=== PATIENT | female | born 1950 | race Caucasian/White ===

== ENCOUNTER → 2020-11-11 13:23 | Outpatient (BNVA) | payer MEDICARE, SELFPAY | PROVIDERS: Family Provider Internal Medicine; PCP Internal Medicine; Visit Provider Nurse Practitioner Family | DX: Z20.822 Contact with and (suspected) exposure to COVID-19 (principal) | CPT/HCPCS: 87635 ==

== ENCOUNTER 2021-04-27 06:00 | Outpatient (RCR) | payer MEDICARE, SELFPAY | END 2021-05-24 23:59 | disposition home or self-care (01) | LOC: GPT 06:00 | PROVIDERS: PCP Internal Medicine; Visit Provider Nurse Practitioner | DX: M25.851 Other specified joint disorders, right hip (principal) | CPT/HCPCS: 97110; 97140; 97162 ==

== ENCOUNTER 2021-05-25 06:00 | Outpatient (RCR) | payer MEDICARE, SELFPAY | END 2021-05-31 23:59 | disposition home or self-care (01) | LOC: GPT 06:00 | PROVIDERS: PCP Internal Medicine; Visit Provider Nurse Practitioner | DX: M25.851 Other specified joint disorders, right hip (principal) | CPT/HCPCS: 97110; 97530 ==

== ENCOUNTER → 2024-05-21 13:36 | Outpatient (BNVA) | payer OTHER, SELFPAY | PROVIDERS: PCP Internal Medicine; Visit Provider Podiatrist Foot & Ankle Surgery | DX: M79.671 Pain in right foot (principal); M79.89 Other specified soft tissue disorders; G57.81 Other specified mononeuropathies of right lower limb; E11.9 Type 2 diabetes mellitus without complications | CPT/HCPCS: 73630 ==

== ENCOUNTER 2024-05-27 08:28 | Outpatient (CLI) | payer OTHER, SELFPAY ==
--- NOTE | 2024-05-27 08:45 | MRR_ITS ---
PROCEDURE INFORMATION: Exam: MR Right Lower Extremity Joint Without and With Contrast; Ankle Exam date and time: 05/27/2024 8:50 AM Age: 73 years old Clinical indication: Pain; Right; PT states shes had a burning apinful sensation in her ankle and along the lateral side carmen her foot for 2 years no known injury; Additional info: Right ankle pain amd burning TECHNIQUE: Imaging protocol: Magnetic resonance imaging of the right lower extremity without and with contrast. Exam focused on the ankle. Contrast material: MULTIHANCE; Contrast volume: 19 ml; Contrast route: INTRAVENOUS (IV); COMPARISON: CR XR foot RT min 3V* [id number] 05/21/2024 1:44 PM FINDINGS: Bones/joints: No marrow edema fracture or bone destruction is appreciated. No focal full-thickness cartilage defects are appreciated. No subchondral cyst formation is noted. There is a physiologic amount of fluid within the joints. LIGAMENTS: Distal tibiofibular syndesmosis: Unremarkable. No tear. Anterior talofibular ligament: Unremarkable. No tear. Posterior talofibular ligament: Unremarkable. No tear. Calcaneofibular ligament: Unremarkable. No tear. Deltoid ligament complex: Unremarkable. No tear. TENDONS: Flexor tendons of foot: Unremarkable as visualized. Tibialis posterior tendon: Unremarkable as visualized. Peroneal tendons: Unremarkable as visualized. Extensor tendons of foot: Unremarkable as visualized. Tibialis anterior tendon: Unremarkable as visualized. Achilles tendon: There is an enthesophyte at the Achilles tendon insertion. There is mild tendinopathy involving the Achilles tendon. Tarsal canal (Sinus tarsi): Unremarkable. Normal signal of the fat. Tarsal tunnel: Unremarkable. Soft tissues: Unremarkable. Plantar fascia: Plantar fascia is unremarkable. MR/MR ankle RT wo/w con [id number] IMPRESSION: 1. Mild tendinopathy involving the Achilles tendon.
[2024-05-27] MEDS: gadobenate dimeglumine 20 mL vial 19 ML IV (09:17)
== END 2024-05-27 08:29 | disposition home or self-care (01) ==
LOC: RAD 08:29
PROVIDERS: PCP Nurse Practitioner; Visit Provider Podiatrist Foot & Ankle Surgery
DX: M79.89 Other specified soft tissue disorders (principal); M76.61 Achilles tendinitis, right leg
CPT/HCPCS: 73723

== ENCOUNTER → 2024-09-02 09:47 | Outpatient (BNVA) | payer OTHER, SELFPAY | PROVIDERS: PCP Nurse Practitioner; Visit Provider Physician Assistant | DX: M65.331 Trigger finger, right middle finger (principal) | CPT/HCPCS: 73130 ==

== ENCOUNTER 2024-10-21 11:26 | Day surgery (SDC) | payer OTHER, SELFPAY ==
[2024-10-21 11:41] VITALS: BP 152/92; PULSE 71; RESP 17; TEMP 36.6; O2SAT 98; BMI 29.6
--- NOTE | 2024-10-21 12:04 | ANES.PREANE2 ---
Pre-Anesthetic Assessment Height/Weight: Height 5 ft 8 in Weight 195 lb Temp Pulse Resp BP Pulse Ox O2 Del Method 97.8 F 71 17 152/92 98 Room Air 10/21/24 11:41 10/21/24 11:41 10/21/24 11:41 10/21/24 11:41 10/21/24 11:41 10/21/24 11:41 Preop Diagnosis: Trigger finger Operation Date: 10/21/24 15:00 Proposed Procedures p RIGHT Middle Trigger Finger Release(Right) - Roberto Monongalia, DO Was Beta Wayne taken within 24 hours: Yes Was Clonidine taken within 24 hours: N/A Last intake: Intake Last Liquid Date 10/21/24 Last Liquid Time 09:00 Last Solid Date 10/20/24 Last Solid Time 17:30 Social No alcohol and No tobacco Exam alert, oriented x 3, clear to auscultation bilaterally and regular rate & rhythm Airway Submandibular: within normal limits Cervical ROM: within normal limits Mallampati: Class III Dentition: full Anesthetic Plan ASA status: 3 Anesthesia: MAC Other: No prior issues with anesthesia NPO since yesterday evening History of GERD on Protonix Takes semaglutide, last taken 10/15/2024 History of hypertension on lisinopril and metoprolol Labs from outside facility reviewed acceptable for procedure METs greater than 4 Plan for MAC anesthesia with local via surgeon Medications/Allergies Home Medications ?Medication ?Instructions ?Recorded ?Confirmed ?Last Taken ?Type aspirin 325 mg tablet 325 mg PO ONCE 03/29/19 10/18/24 10/15/24 History coenzyme [id number] E 100 mg-100 1 cap PO BID 03/29/19 10/18/24 10/18/24 History unit capsule lisinopril 10 mg tablet 10 mg PO BID 03/29/19 10/21/24 10/20/24 History metoprolol succinate 25 mg 25 mg PO BID 03/29/19 10/21/24 10/21/24 History tablet,extended release 24 hr icosapent ethyl 1 gram capsule 2 g PO BID 05/21/24 10/18/24 10/02/24 History semaglutide 0.25 mg or 0.5 mg (2 1 mg SUBCUT .Q7D 09/02/24 10/18/24 10/15/24 History mg/3 mL) subcutaneous pen injector (Ozempic) pantoprazole 20 mg tablet,delayed 20 mg PO DAILY 10/18/24 10/21/24 10/21/24 History release rosuvastatin 40 mg tablet 40 mg PO DAILY 10/18/24 10/21/24 10/20/24 History Allergies Allergy/AdvReac Type Severity Reaction Status Date / Time metformin Allergy ADR-Nausea Verified 10/18/24 12:16 Sulfa (Sulfonamide Allergy ALGY-Hives Verified 10/18/24 12:16 Antibiotics) [facility] Anesthesia Medical History (Updated 09/02/24 @ 10:41 by SHANE Hall) Diverticulosis large intestine w/o perforation or abscess w/bleeding Plan of care; Review the pathology with the patient Return to primary care provider Avoid constipation Avoid seeds nuts and popcorn High Fiber diet; As Fiber softens the stool and helps prevent constipation. It also can help decrease pressure in the colon and help prevent flare-ups of diverticulitis. High-fiber foods include: ?Beans and legumes ?Bran, whole wheat bread and whole grain cereals such as oatmeal ?Brown and wild rice ?Fruits such as apples, bananas and pears ?Vegetables such as broccoli, carrots, corn and squash ?Whole wheat pasta The target is to eat 25 to 30 grams of fiber daily. Drink at least 8 cups of fluid daily. Fluid will help soften your stool.Exercise also promotes bowel movement and helps prevent constipation. Weight loss Assurance and education All questions have been answered Recommend to repeat colonoscopy in 2 to 3 years unless otherwise specified GERD (gastroesophageal reflux disease) Family History Mother Diabetes Grandmother Diabetes Family/Other Hyperlipidemia Hypertension Social History Smoking and tobacco/nicotine status: never used tobacco/nicotine Alcohol intake: never Substance/Drug Use: never Lives independently: Yes Household members: children Current occupational status: retired
[2024-10-21] MEDS: acetaminophen 1,000 MG/100 ML PIGGYBACK 400 MG IV (12:08)
--- NOTE | 2024-10-21 12:10 | W.PM.OPSFHP ---
Same Day Surgery H&P Indication for Procedure/HPI DATE OF PROCEDURE: October 21, 2024 CHIEF COMPLAINT/INDICATIONFOR SURGICAL PROCEDURE: Right middle finger trigger PREOP DIAGNOSIS: Right middle trigger finger PLANNED PROCEDURE: Operation Date: 10/21/24 15:00 Proposed Procedures p RIGHT Middle Trigger Finger Release(Right) - Roberto Isaac, DO Medications/Allergies* Home Medications ?Medication ?Instructions ?Recorded ?Confirmed ?Type aspirin 325 mg tablet 325 mg PO ONCE 03/29/19 10/18/24 History coenzyme [id number] E 100 mg-100 1 cap PO BID 03/29/19 10/18/24 History unit capsule lisinopril 10 mg tablet 10 mg PO BID 03/29/19 10/21/24 History metoprolol succinate 25 mg 25 mg PO BID 03/29/19 10/21/24 History tablet,extended release 24 hr icosapent ethyl 1 gram capsule 2 g PO BID 05/21/24 10/18/24 History semaglutide 0.25 mg or 0.5 mg (2 1 mg SUBCUT .Q7D 09/02/24 10/18/24 History mg/3 mL) subcutaneous pen injector (Ozempic) pantoprazole 20 mg tablet,delayed 20 mg PO DAILY 10/18/24 10/21/24 History release rosuvastatin 40 mg tablet 40 mg PO DAILY 10/18/24 10/21/24 History Allergies/Adverse Reactions Allergy/AdvReac Type Severity Reaction Status Date / Time metformin Allergy ADR-Nausea Verified 10/18/24 12:16 Sulfa (Sulfonamide Allergy ALGY-Hives Verified 10/18/24 12:16 Antibiotics) Current Medications: Generic Name Dose Route Start Last Admin Trade Name Freq PRN Reason Stop Dose Admin Sodium Chloride 1,000 mls @ 30 mls/hr 10/21/24 11:30 10/21/24 12:07 Sodium Chloride 0.9% IV 10/22/24 11:29 30 mls/hr .Q24H EPIFANIO Administration Pertinent History/Comorbid Conditions* Medical History (Updated 09/02/24 @ 10:41 by SHANE aHll) Diverticulosis large intestine w/o perforation or abscess w/bleeding Plan of care; Review the pathology with the patient Return to primary care provider Avoid constipation Avoid seeds nuts and popcorn High Fiber diet; As Fiber softens the stool and helps prevent constipation. It also can help decrease pressure in the colon and help prevent flare-ups of diverticulitis. High-fiber foods include: ?Beans and legumes ?Bran, whole wheat bread and whole grain cereals such as oatmeal ?Brown and wild rice ?Fruits such as apples, bananas and pears ?Vegetables such as broccoli, carrots, corn and squash ?Whole wheat pasta The target is to eat 25 to 30 grams of fiber daily. Drink at least 8 cups of fluid daily. Fluid will help soften your stool.Exercise also promotes bowel movement and helps prevent constipation. Weight loss Assurance and education All questions have been answered Recommend to repeat colonoscopy in 2 to 3 years unless otherwise specified GERD (gastroesophageal reflux disease) Family History (Updated 04/01/19 @ 08:54 by Anjelica Melchor RN) Diabetes Mother Grandmother Hyperlipidemia Family/Other Hypertension Family/Other Social History Smoking and tobacco/nicotine status: never used tobacco/nicotine Alcohol intake: never Substance/Drug Use: never Lives independently: Yes Household members: children Current occupational status: retired Pertinent Exam Findings alert, oriented x 3, operative site marked and procedure specific exam findings Please refer to detailed orthopedic examination on 09/02/24 listed below: right hand?middle finger?A1 bryon tenderness and mechanical locking catching of finger. Negative Tinel's and negative Phalen's test. No other A1 bryon tenderness and no other mechanical catching of any fingers. No palpable tenderness over base of thumb and negative CMC grind test. Negative Felipe test. Radial pulse 2+. Recommendations Risks and benefits of procedure reviewed and Patient/family agree to proceed Surgery/Procedure today Other Plans: Plan to proceed to the OR today for right middle finger trigger release. Patient has severe pain and triggering noted she is failed conservative treatment at this point in time she would like to pursue surgical intervention as she has mechanical locking and unable to lock this unless she opens it with her other digit. We talked about her options moving forward and through shared decision making and understanding the risk benefits complications alternatives with surgery understanding risk of surgery she elects proceed with surgical intervention all questions at this time. Will proceed with a right middle finger trigger release all questions answered. We did educate her that we will try to have anesthesia wake patient up to make a fist and open and close which she is comfortable and understanding of this. All questions answered this time. Coding Level of Care Code Acute Code for Chg Fwd
[2024-10-21] MEDS: ceFAZolin 2,000 MG in sodium chloride 0.9% (plus) 50 ML 100 MG IV (12:17)
[2024-10-21] MEDS: ROPivacaine 0.5% SDV 30 mL 25 MG INJECTION (12:43)
[2024-10-21 12:55] VITALS: BP 157/70; PULSE 70; RESP 20; TEMP 36.4; O2SAT 95
--- NOTE | 2024-10-21 12:55 | PM.OP ---
Operative Report Date of procedure: October 21, 2024 Surgeon: Roberto Isaac DO Procedure: Preoperative diagnosis: Right middle finger trigger Post-op diagnosis: Same Procedure done: Right?middle?finger?trigger?release Surgeon: Roberto Isaac DO Estimated blood loss: 1cc Tourniquet time 4 mins Anesthesia?local/MAC Complications: None Condition: stable Disposition: same day Brief History: Patient's been seen and worked up in the outpatient setting and findings consistent with preoperative diagnosis of right?middle?finger?trigger.? Patient is failed conservative treatment.? Continues to have mechanical locking and catching.? Severe pain as well.? We talked about treatment options nonoperative versus operative intervention.? ?Patient understands the risk benefits complication alternatives of surgical nonsurgical treatment options.? Understanding risks with surgery patient elects proceed with surgical intervention.? Consent obtained in the preoperative holding area.? Here today to proceed with surgical intervention for right middle finger trigger release all questions answered. Procedure: Patient was seen and evaluated in the preoperative holding area.? Consent was reviewed and signed with patient.? Seen evaluated by Anesthesia Department.? Once cleared for surgery was brought back to the operative suite.? Placed in supine position on the OR table all bony prominences well-padded patient properly secured to the bed.? Patient's right arm was then placed to the armboard.? A nonsterile tourniquet applied to the right upper arm.? Patient's right upper extremity was then prepped and draped in standard orthopedic fashion.? Final timeout performed.? Patient received appropriate preoperative antibiotics. Esmarch tourniquet was used exsanguinate the right upper extremity tourniquet insufflated to 250 mmHg. Under sterile aseptic technique local digital block was performed to the right?middle?finger.? Once appropriately anesthetized a standard oblique incision was made centering over the A1 bryon following patient's flexor crease.? Sharp scalpel incision was made only through skin and then switched to Littler dissection scissors and spread longitudinally directly over the flexor tendon sheath.? I then mobilized both radially and ulnarly and Kasdan retractors were used and placed by my pharmacist assistant to protect neurovascular bundle.? Next I visualized the A1 bryon and this was incised with a scalpel.? I then switched to dissection scissors and released the A1 bryon both proximally as well as distally to its entirety.? Significant tendon sheath fluid was noted consistent with inflammation.? Mild fraying of the flexor tendons noted but no tear.? At this point I utilized a rag nail and pulled the tendons FDS and FDP out of the incision and no?triggering was noted.? I then had anesthesia wake up the patient and patient was able to actively flex and extend with no?triggering.? This point thorough irrigation was performed.? Tourniquet deflated hemostasis satisfactory with bipolar.? I then subsequently closed the incision with interrupted nylon suture.? Xeroform 4 x 4's, Kerlix and an Sonny wrap was applied for a bulky soft dressing.? Patient was then subsequently awakened from anesthesia and taken to PACU in stable condition tolerated procedure without issues. Disposition: Patient taken back in stable condition recovering well.? Patient will receive appropriate discharge instruction as well as pain medication postoperatively.? Patient to follow-up with me in the office in 2 weeks for repeat evaluation and incision check.? Patient understands that any questions or concerns and contact the office.? All questions answered.
--- NOTE | 2024-10-21 12:57 | W.PM.BPON ---
Date of Procedure: [October 21, 2024] Surgeon: [Dr. Isaac, DO] Data Solutions Architect(s): [N/A] Procedure(s) performed: [Right middle trigger finger release] Findings of the procedure(s): [Right middle trigger finger. Procedure went well and as planned] Estimated blood loss: [1 ml] Specimen(s) removed: [N/A] Post-operative diagnosis: [Right middle trigger finger.]
[2024-10-21 13:00] VITALS: BP 166/90; PULSE 71; RESP 18; O2SAT 96
[2024-10-21 13:05] VITALS: BP 135/76; BP 170/80; PULSE 66; PULSE 68; RESP 18; TEMP 36.2; O2SAT 97
[2024-10-21 13:11] VITALS: BP 115/70; PULSE 70; RESP 17; TEMP 36.6; O2SAT 97
[2024-10-21 13:26] VITALS: BP 123/73; PULSE 66; RESP 18; TEMP 36.6; O2SAT 98
--- NOTE | 2024-10-21 14:00 | ANE.PACU2 ---
Inpatient post-anesthesia follow up: Airway intact: Yes Vital signs: Temperature 98 F Pulse Rate 66 Respiratory Rate 18 Blood Pressure 123/73 Pulse Oximetry 98 Oxygen Delivery Me thod Room Air Oxygen Flow Rate Fraction of Inspir ed Oxygen Hydration adequate: Yes Nausea and vomiting: No Pain level: 1 Mental status: Baseline
== END 2024-10-21 14:00 | disposition home or self-care (01) ==
PROVIDERS: PCP Nurse Practitioner; Visit Provider Student in an Organized Health Care Education/Training Program
PROC: (CPT 26055; principal; 2024-10-21 14:50)
DX: M65.331 Trigger finger, right middle finger (principal); K21.9 Gastro-esophageal reflux disease without esophagitis; I10 Essential (primary) hypertension; Z79.82 Long term (current) use of aspirin
CPT/HCPCS: 26055; 36416; 82962; J0131; J0690; J1885; J2704; J2795; J3010; J7030; J9999

== ENCOUNTER → 2024-11-06 08:23 | Outpatient (BNVA) | payer MEDICARE, SELFPAY | PROVIDERS: PCP Nurse Practitioner; Visit Provider Physician Assistant | DX: Z98.890 Other specified postprocedural states (principal) | CPT/HCPCS: 99024 ==

== ENCOUNTER → 2025-02-06 08:43 | Outpatient (BNVA) | payer MEDICARE, SELFPAY | PROVIDERS: PCP Nurse Practitioner; Referring Provider Nurse Practitioner; Visit Provider Dermatology | DX: L82.1 Other seborrheic keratosis (principal); D18.01 Hemangioma of skin and subcutaneous tissue; L57.8 Other skin changes due to chronic exposure to nonionizing radiation; D48.5 Neoplasm of uncertain behavior of skin; L57.0 Actinic keratosis | CPT/HCPCS: 11102; 17000; 99203 ==